=== PATIENT | male | born 1990 ===

== ENCOUNTER 2017-12-30 12:17 | Emergency (ER) | payer BC ==
[2017-12-30 13:44] VITALS: BP 130/83
--- NOTE | 2017-12-30 14:30 | UC ---
Respiratory Complaint HPI - HPI Summary HPI Summary: pt is c/o cough with congestion for about 1 month. it began with a sinus infection that moved into his chest. the sinus part resolved with otc tx. pt admits to sputum but denies wheezing, sob and fever. sometimes his lungs feel a little tight though. no hcx asthma. 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 no night sweats of weight loss. - History of Current Complaint Chief Complaint: UCRespiratory Stated Complaint: CONGESTION, COUGH Time Seen by Provider: 12/30/17 14:12 Hx Obtained From: Patient Onset/Duration: Gradual Onset Timing: Constant Pain Intensity: 0 Character: Cough: Productive, Sputum Description: - unknown Aggravating Factors: Nothing Alleviating Factors: Nothing Associated Signs And Symptoms: Negative: Fever, Chills, Wheezing - Risk Factors Pulmonary Embolism Risk Factors: Negative Cardiac Risk Factors: Negative Pseudomonas Risk Factors: Negative Tuberculosis Risk Factors: Negative - Allergies/Home Medications Allergies/Adverse Reactions: Allergies Allergy/AdvReac Type Severity Reaction Status Date / Time No Known Allergies Allergy Verified 12/30/17 13:39 PMH/Surg Hx/FS Hx/Imm Hx Previously Healthy: Yes - Surgical History Surgical History: Yes Surgery Procedure, Year, and Place: ABDOMINAL SURGERY A , POSS BOWEL OBSTRUCTION - Social History Occupation: Employed Full-time - [employer] and ER scribe Lives: With Family Alcohol Use: None Substance Use Type: None Smoking Status (MU): Never Smoked Tobacco - Immunization History Vaccination Up to Date: Yes Review of Systems Constitutional: Negative Skin: Negative Eyes: Negative ENT: Negative Respiratory: Cough Cardiovascular: Negative Gastrointestinal: Negative Genitourinary: Negative Motor: Negative Neurovascular: Negative Musculoskeletal: Negative Neurological: Negative Psychological: Negative Is Patient Immunocompromised?: No All Other Systems Reviewed And Are Negative: Yes Physical Exam Triage Information Reviewed: Yes Appearance: Well-Appearing Vital Signs: Initial Vital Signs Temp 98.2 F 12/30/17 13:40 Pulse 65 12/30/17 13:40 Resp 18 12/30/17 13:40 BP 130/83 12/30/17 13:40 Pulse Ox 100 12/30/17 13:40 Vital Signs Reviewed: Yes Eye Exam: Normal ENT: Positive: Pharynx normal, TMs normal. Negative: Nasal congestion, Nasal drainage, Hoarse voice, Sinus tenderness Neck: Positive: Supple, Nontender, No Lymphadenopathy Respiratory: Positive: Lungs clear, No respiratory distress, Decreased breath sounds, Other: - cough is mildly congested Cardiovascular: Positive: RRR, No Murmur Abdomen Description: Positive: Nontender, No Organomegaly, Soft Bowel Sounds: Positive: Present Neurological: Positive: Alert Psychological Exam: Normal Skin Exam: Normal UC Diagnostic Evaluation - Laboratory O2 Sat by Pulse Oximetry: 100 Respiratory Course/Dx - Course Course Of Treatment: pt declined cxr, prefers to try tx 1st. since ill x 1 month will cover for presumptive bacterial infection with zpak and albuterol mdi for reactive airways. do not feel TB. need for f/u stressed and referal for a pcp given - Differential Dx/Diagnosis Provider Diagnoses: cough. bronchospasm Discharge - Discharge Plan Condition: Stable Disposition: HOME Prescriptions: Albuterol HFA INHALER* [Ventolin HFA Inhaler*] 2 puff INH Q6H 7 Days #1 mdi Azithromycin TAB* [Zithromax TAB (Z-ALFONSO) 250 mg #6 tabs] 2 tab PO .TODAY, THEN 1 DAILY #1 alfonso Patient Education Materials: Bronchospasm (ED), Acute Cough (ED) Referrals: Sami Dawkins DO [Doctor of Osteopathy] - 5 Days
== END 2017-12-30 14:38 | disposition home or self-care (01) ==
LOC: UCCORT 12:17
DX: J98.01 Acute bronchospasm (principal); R05 Cough
CPT/HCPCS: 99211; G0463